=== PATIENT | male | born 1945 | race Caucasian/White ===

== ENCOUNTER 2022-05-09 12:57 | Emergency (ER) | payer OTHER ==
[~2022-05-09] VITALS: Ht 190.5 cm; Wt 82.7 kg
[2022-05-09 16:44] VITALS: BP 124/82
== END 2022-05-09 17:08 | disposition home or self-care (01) ==
LOC: M ED 16:20
DX: S00.03XA Contusion of scalp, initial encounter (principal); S06.0X9A Concussion with loss of consciousness of unspecified duration, initial encounter; W19.XXXA Unspecified fall, initial encounter; Y92.9 Unspecified place or not applicable; Y93.9 Activity, unspecified; Y99.0 Civilian activity done for income or pay; I48.91 Unspecified atrial fibrillation; G31.9 Degenerative disease of nervous system, unspecified; I10 Essential (primary) hypertension; F17.200 Nicotine dependence, unspecified, uncomplicated; Z79.01 Long term (current) use of anticoagulants; Z79.899 Other long term (current) drug therapy